=== PATIENT | female | born 1950 | race Caucasian/White ===

== ENCOUNTER 2020-11-07 05:14 | Emergency (ER) | payer OTHER ==
[~2020-11-07 05:14] MED LIST: ARAVA20 MG PO; ASPIR 8181 MG PO; BISOPROLOL-HCT1 EACH PO; BRILINTA90 MG PO; CRESTOR40 MG PO; FERROUS SULFAT325 M2 PO; ISOSORBIDE MONO30 MG PO; LASIX TAB 20 MG20 MG PO; LISINOPRIL5 MG PO; LOPRESSOR 25 MG25 MG PO; NEXIUM20 MG PO; NITROSTAT0.4 MG SL; TRAZODONE HCL100 MG PO; TRIAMTERENE-HC1 EACH PO; ULTRAM50 MG PO; VENLAFAXINE HC150 M1 PO; ZANAFLEX4 MG PO
[2020-11-07 06:54] LABS: HEMOGLOBIN 10.9 gm/dl (12.3-15.3); RED BLOOD COUNT 3.82 M/UL (4.00-5.10); WHITE BLOOD COUNT 8.2 K/UL (4.5-11.0)
== END 2020-11-07 13:30 | disposition home or self-care (01) ==
LOC: ER1 05:14
PROVIDERS: Emergency Medicine
DX: I50.9 Heart failure, unspecified (principal); Z20.822 Contact with and (suspected) exposure to COVID-19
CPT/HCPCS: 71045; 80053; 82550; 82553; 83874; 83880; 84484; 85025; 93005; 96374; 96375; 99285; J1940; J3480; U0002

== ENCOUNTER → 2021-04-20 | Outpatient (CLI) | payer OTHER | LOC: HEART 5 03-18 14:30 | DX: I25.10 Atherosclerotic heart disease of native coronary artery without angina pectoris (principal); I08.1 Rheumatic disorders of both mitral and tricuspid valves; I27.20 Pulmonary hypertension, unspecified | CPT/HCPCS: 93306 ==

== ENCOUNTER → 2021-07-20 | Outpatient (CLI) | payer OTHER | LOC: HEART 5 05-14 08:00 | DX: R07.9 Chest pain, unspecified (principal); R06.02 Shortness of breath; I51.7 Cardiomegaly | CPT/HCPCS: 78452; A9502; J2785 ==

== ENCOUNTER → 2021-09-21 | Outpatient (CLI) | payer OTHER ==
[~2021-09-21] MED LIST changes: +CARVEDILOL3.125 MG PO; +FOLIC ACID0.8 MG PO; +FUROSEMIDE40 MG PO; +HYDROCHLOROTH12.5 MG PO; +LISINOPRIL10 MG PO; -LISINOPRIL5 MG PO; +POTASSIUM CHLO20 ME1 PO; +RANEXA500 MG PO; +WOMEN'S 50 PLU1 EACH PO
== END ==
LOC: HEART 5 08-19 14:30
DX: I35.0 Nonrheumatic aortic (valve) stenosis (principal); I25.10 Atherosclerotic heart disease of native coronary artery without angina pectoris; I27.20 Pulmonary hypertension, unspecified
CPT/HCPCS: 93306

== ENCOUNTER 2021-09-26 21:16 | Observation (INO) | payer OTHER ==
[~2021-09-26] VITALS: Ht 162.6 cm; Wt 64.4 kg
[~2021-09-26 21:16] MED LIST changes: -CARVEDILOL3.125 MG PO; -FOLIC ACID0.8 MG PO; -FUROSEMIDE40 MG PO; -HYDROCHLOROTH12.5 MG PO; -POTASSIUM CHLO20 ME1 PO; -RANEXA500 MG PO; -WOMEN'S 50 PLU1 EACH PO
[2021-09-26 23:03] LABS: HEMOGLOBIN 10.1 gm/dl (12.3-15.3); RED BLOOD COUNT 3.73 M/UL (4.00-5.10); WHITE BLOOD COUNT 9.9 K/UL (4.5-11.0)
--- NOTE | 2021-09-27 02:25 | NUR ---
PT DID NOT BRING HOME MEDICATION BOTTLES TO THE HOSPITAL. HOME MED REC TO BE COMPLETED BY PHARMACY IN THE AM. WILL CONTINUE TO MONITOR.
[2021-09-27 04:34] LABS: HEMOGLOBIN 9.3 gm/dl (12.3-15.3); RED BLOOD COUNT 3.43 M/UL (4.00-5.10)
[2021-09-27 04:35] LABS: WHITE BLOOD COUNT 6.9 K/UL (4.5-11.0)
[2021-09-27] MEDS ORDERED: FUROSEMIDE40 MG PO (10:05)
[2021-09-27] MEDS ORDERED: ISOSORBIDE MONO30 MG PO ×2 (10:07→12:52)
[2021-09-27] MEDS ORDERED: CARVEDILOL3.125 MG PO ×2 (10:08→12:57)
[2021-09-27] MEDS ORDERED: HYDROCHLOROTH12.5 MG PO (10:09)
[2021-09-27] MEDS ORDERED: POTASSIUM CHLO20 ME1 PO (10:10)
[2021-09-27] MEDS ORDERED: WOMEN'S 50 PLU1 EACH PO (10:13)
[2021-09-27] MEDS ORDERED: FOLIC ACID0.8 MG PO (10:13)
--- NOTE | 2021-09-27 10:48 | NUR ---
Per Dr. Denney D/C NS 0.9% with 20 MEQ KCI and replace potassium per potassium protocal.
--- NOTE | 2021-09-27 10:49 | NUR ---
Per Dr. Chavez start patient on Imdur 30 mg PO Daily
[2021-09-27] MEDS ORDERED: RANEXA500 MG PO (12:52)
== END 2021-09-27 13:57 | disposition home or self-care (01) ==
LOC: ER1 21:16 → CDU 09-27 00:37 → M/S 09-27 00:37
PROVIDERS: Nurse Practitioner; ADMIT Internal Medicine
DX: R07.89 Other chest pain (principal); R06.02 Shortness of breath; E87.6 Hypokalemia; N17.9 Acute kidney failure, unspecified; I13.0 Hypertensive heart and chronic kidney disease with heart failure and stage 1 through stage 4 chronic kidney disease, or unspecified chronic kidney disease; N18.30 Chronic kidney disease, stage 3 unspecified; I50.22 Chronic systolic (congestive) heart failure; D63.1 Anemia in chronic kidney disease; I42.9 Cardiomyopathy, unspecified; I25.10 Atherosclerotic heart disease of native coronary artery without angina pectoris; I25.2 Old myocardial infarction; D46.9 Myelodysplastic syndrome, unspecified; M06.9 Rheumatoid arthritis, unspecified; M79.7 Fibromyalgia; K21.9 Gastro-esophageal reflux disease without esophagitis; E78.5 Hyperlipidemia, unspecified; M19.90 Unspecified osteoarthritis, unspecified site; M35.3 Polymyalgia rheumatica; Z20.822 Contact with and (suspected) exposure to COVID-19; Z95.5 Presence of coronary angioplasty implant and graft; Z88.1 Allergy status to other antibiotic agents; Z88.2 Allergy status to sulfonamides; Z88.5 Allergy status to narcotic agent; Z88.8 Allergy status to other drugs, medicaments and biological substances; Z96.643 Presence of artificial hip joint, bilateral; Z90.49 Acquired absence of other specified parts of digestive tract; Z90.711 Acquired absence of uterus with remaining cervical stump; Z89.021 Acquired absence of right finger(s); Z98.890 Other specified postprocedural states; Z79.82 Long term (current) use of aspirin; Z79.899 Other long term (current) drug therapy
CPT/HCPCS: 0240U; 36415; 71045; 80048; 80053; 81001; 82550; 82553; 83735; 83880; 84100; 84484; 85025; 93005; 96372; 99285; G0378; J1644; J3480

== ENCOUNTER → 2021-11-02 | Outpatient (CLI) | payer OTHER ==
[~2021-11-02] MED LIST changes: +CARVEDILOL3.125 MG PO; +FOLIC ACID0.8 MG PO; +FUROSEMIDE40 MG PO; +HYDROCHLOROTH12.5 MG PO; +POTASSIUM CHLO20 ME1 PO; +RANEXA500 MG PO; +WOMEN'S 50 PLU1 EACH PO
== END ==
LOC: HEART 5 08:53
DX: R06.02 Shortness of breath (principal)
CPT/HCPCS: 94010